=== PATIENT | female | born 1970 | race Caucasian/White ===

== ENCOUNTER 2020-01-22 16:20 | Inpatient (IN) | payer OTHER, SELFPAY ==
[~2020-01-22] VITALS: Ht 152.4 cm; Wt 101.6 kg
[2020-01-22 18:00] VITALS: BP 157/86
[2020-01-22] MEDS ORDERED: CITA20TA7 PO (18:08)
[2020-01-22] MEDS ORDERED: ROPI1TAB3 PO (18:08)
[2020-01-22] MEDS ORDERED: SM E1DRO2 OU (18:08)
[2020-01-22] MEDS ORDERED: XALA0.007 OU (18:08)
[2020-01-22] MEDS ORDERED: ONDA-83 PO (18:08)
[2020-01-22] MEDS ORDERED: DRIS50003 PO (18:08)
[2020-01-22] MEDS ORDERED: CYAN1000VL IM (18:08)
[2020-01-22] MEDS ORDERED: AMLO2.5T3 PO (18:08)
[2020-01-22] MEDS ORDERED: LISI40TA PO (18:08)
[2020-01-22] MEDS ORDERED: TOPI25CA3 PO (18:08)
[2020-01-22] MEDS ORDERED: QVAR80AE8 PO (18:08)
--- NOTE | 2020-01-22 18:23 | HPEPDOC ---
[facility] Medical History & Physical Date of Admission Jan 22, 2020 Date of Service: Jan 22, 2020 Attending Physician: EDY KRAMER MD History and Physical TIME OF SERVICE: 7:35 PM CHIEF COMPLAINT: "I hurt all over" HISTORY OF PRESENT ILLNESS: This is a 49-year-old female who presented with the chief complaint of "I hurt all over" when asked to be more specific, she admitted to having 10 out of 10 at its worse in severity, abdominal pain that was worse when she moves around for several weeks. She cannot identify any specific alleviating factors. She is also complaining of multiple episodes of nausea and nonbloody emesis that occur when she smells food,, and multiple episodes of nonbloody diarrhea. She last ate a bagel last night. Today she presented to [facility] because her symptoms were worse. The initial blood work was remarkable for a d-dimer 7.1, hemoglobin of 12.9, BUN of 33, creatinine 1.3, glucose 117, and d-dimer 7.1. CTA of the chest was negative. CT of the abdomen identified a mass / possible intussusception that was not present on old CT scans, therefore providers to [facility] requested transfer for surgical evaluation. REVIEW OF SYSTEMS: 12 point review of systems negative except as listed in HPI PAST MEDICAL/ SURGICAL HISTORY: Gastric bypass. Chronic hypertension Anxiety MIGUEL ANGEL Vitamin B deficiency Vitamin D deficiency Cholecystectomy Tubal ligation Hysterectomy Abdominal hernia repair Knee surgery SOCIAL HISTORY: She quit smoking FAMILY HISTORY: COPD ALLERGIES: Please see below. HOME MEDICATIONS: Please see below. PHYSICAL EXAMINATION: Vital Signs Date Time Temp Pulse Resp B/P (MAP) Pulse Ox O2 Delivery O2 Flow Rate FiO2 01/22/20 18:00 98.3 71 20 157/86 (109) 100 Room Air GEN: well-nourished / well developed/ NAD HEENT: NCAT / mucus membranes moist and pink CVS: RRR/NMRG/ no JVP / radial pulses intact LUNGS: able to speak full sentences without stopping to take a breath / lungs are clear to auscultation bilaterally on room air ABDOMEN: Contour ( obese) / soft & tender with palpation MSK/EXTREMITIES: range of motion intact in all 4 extremities NEURO: CN 2-12 are grossly intact / speech is not dysarthric PSYCH: alert and oriented to person place and time/ able to understand and follow all commands LABORATORY DATA: MICROBIOLOGY: Please see below. ASSESSMENT: Ms. Dubose is a 49-year-old with a history of hypertension, anxiety, and multiple abdominal surgeries, who was transferred for surgical evaluation of evaluation of possible mass/ intussusception on CT of the abdomen. PLAN: 1. Abdominal pain, cause to be determined. Blood work and CT scan findings per HPI. Plan: Mid to medical floor/nothing by mouth/IV fluids/follow-up UA/general surgery consult () / morphine PRN for pain 2. NN Anemia , likely due to iron deficiency Repeat hemoglobin has dropped from 12.9 down to 11.6. Plan: Follow up CBC/iron panel and stool occult 3. MIGUEL ANGEL - nocturnal O2/ own BiPAP 4. Chronic HTN - amlodipine, lisinopril and hydrochlorothiazide 5. Anxiety - citalopram DVT PROPHYLAXIS: SCD DISPOSITION: Likely home after more than 2 midnight's stay LATE ENTRY Per discussion with Dr. Salazar we will advance her to mechanical soft diet, stop IVF and follow up CT of the abdomen with contrast tomorrow Home Medications Scheduled Amlodipine Besylate (Amlodipine Besylate) 2.5 Mg Tablet, 2.5 MG PO QPM Beclomethasone Dipropionate (Qvar Redihaler) 80 Mcg/Act Hfa.aeroba, 2 PUFFS PO BID Citalopram Hydrobromide (Citalopram HBr) 20 Mg Tablet, 20 MG PO QPM Cyanocobalamin (Cyanocobalamin Injection) 1,000 Mcg/1 Ml Vial, 1,000 MCG IM DAILY DAILY FOR 7 DAYS STARTING 01/20/2020. THEN ONCE A WEEK, THEN ONCE A MONTH Ergocalciferol (Vitamin D2) (Drisdol) 1,250 Mcg Capsule, 50,000 UNITS PO QWEEK TAKES ON FRIDAYS Ferrous Gluconate (Ferrous Gluconate) 324 Mg Tablet, 324 MG PO BID Folic Acid (Folic Acid) 1 Mg Tablet, 1 MG PO QPM Ketotifen Fumarate (Eye Itch Relief) 5 Ml Drops, 1 DROP OU BID Latanoprost (Xalatan) 0.005% 2.5ML Drops, 1 DROP OU QHS Lisinopril/Hydrochlorothiazide (Lisinopril-Hctz 20-25 mg Tab) 1 Each Tablet, 1 TAB PO QPM Ropinirole HCl (Ropinirole HCl) 1 Mg Tablet, 1 MG PO QPM Topiramate (Topiramate) 100 Mg Tablet, 100 MG PO QPM Scheduled PRN Ondansetron HCl (Ondansetron HCl) 4 Mg Tablet, 4 MG PO QPMP PRN for NAUSEA OR VOMITING Allergies Coded Allergies: Coconut (Unverified Adverse Reaction, Intermediate, BP DROPS, NEEDS IV'S, 01/22/20) Milk Containing Products (Unverified Adverse Reaction, Intermediate, VOMITING, 01/22/20) codeine (Unverified Adverse Reaction, Intermediate, BP DROPS, NEEDS IV'S , 01/22/20) milk (Unverified Adverse Reaction, Intermediate, VOMITING, 01/22/20) peanut (Unverified Adverse Reaction, Mild, VOMITING, 01/22/20) EDY KRAMER MD Jan 22, 2020 18:23
[2020-01-22] MEDS ORDERED: FOLI1TAB11 PO (18:43)
[2020-01-22] MEDS ORDERED: TOPI100T9 PO (18:43)
[2020-01-22] MEDS ORDERED: LISI20TA20 PO (18:43)
[2020-01-22] MEDS ORDERED: FERR32TA PO (18:43)
[2020-01-22] MEDS ORDERED: NS 1,000 ML IV SCH (19:00)
[2020-01-22 19:32] LABS: HEMATOCRIT 35.7 % (36.0-47.0); HEMOGLOBIN 11.6 g/dl (12.0-15.5); MEAN CORPUSCULAR HEMOGLOBIN 29.6 pg (27.0-33.0); MEAN CORPUSCULAR HGB CONC 32.5 g/dl (32.0-36.5); MEAN CORPUSCULAR VOLUME 91.1 fl (80.0-96.0); PLATELET COUNT, AUTOMATED 189 10^3/uL (150-450); RED BLOOD COUNT 3.92 10^6/uL (4.00-5.40)
[2020-01-22 19:44] LABS: INR 1.06; PROTHROMBIN TIME 13.5 SECONDS (11.8-14.0)
[2020-01-22 19:54] LABS: ALBUMIN 3.2 GM/DL (3.2-5.2); BILIRUBIN,TOTAL 0.4 MG/DL (0.2-1.0); CALCIUM LEVEL 8.9 MG/DL (8.5-10.1); CREATININE FOR GFR 1.07 MG/DL (0.55-1.30); GLOMERULAR FILTRATION RATE 57.6 (>51); TOTAL PROTEIN 6.6 GM/DL (6.4-8.2)
[2020-01-22] MEDS ORDERED: MORPHINE 2 MG/ML 1ML VIAL (J2270) IV PRN (20:00)
[2020-01-22] MEDS ORDERED: ONDANSETRON 4 MG TAB PO PRN (20:00)
[2020-01-22] MEDS ORDERED: FERROUS GLUCONATE 324 MG TAB PO SCH (21:00)
[2020-01-22] MEDS: CitaloPRAM (CeleXA) 20 MG TAB PO SCH (21:58)
[2020-01-22] MEDS: hydroCHLOROthiazide 25 MG TAB PO SCH (21:58)
[2020-01-22] MEDS: FOLIC ACID 1 MG TAB PO SCH (21:58)
[2020-01-22] MEDS: lisinopriL 20 MG TAB PO SCH (21:58)
[2020-01-22] MEDS: rOPINIRole 1MG TAB PO SCH (21:58)
[2020-01-22] MEDS: TOPIRAMATE (TopAMAX) 100 MG TAB PO SCH (21:58)
[2020-01-22] MEDS: LATANOPROST 0.005% OPHTH SOLN 2.5 ML OU SCH (21:59)
[2020-01-22] MEDS: CYANOCOBALAMIN 1,000MCG/ML VIAL (J3420) IM SCH (21:59)
[2020-01-22 22:00] VITALS: BP 152/84
[2020-01-22 23:17] LABS: PERCENT SATURATION 24.1 % (13.2-45.0)
[2020-01-23 05:40] LABS: HEMATOCRIT 35.3 % (36.0-47.0); HEMOGLOBIN 11.3 g/dl (12.0-15.5); MEAN CORPUSCULAR HEMOGLOBIN 29.4 pg (27.0-33.0); MEAN CORPUSCULAR VOLUME 91.7 fl (80.0-96.0); PLATELET COUNT, AUTOMATED 199 10^3/uL (150-450); RED BLOOD COUNT 3.85 10^6/uL (4.00-5.40); WHITE BLOOD COUNT 7.8 10^3/uL (4.0-10.0)
[2020-01-23 06:00] VITALS: BP 104/57
[2020-01-23 06:12] LABS: BLOOD UREA NITROGEN 22 MG/DL (7-18); CALCIUM LEVEL 9.1 MG/DL (8.5-10.1); CARBON DIOXIDE LEVEL 26 MEQ/L (21-32); CHLORIDE LEVEL 109 MEQ/L (98-107); CREATININE FOR GFR 0.97 MG/DL (0.55-1.30); GLOMERULAR FILTRATION RATE > 60.0 (>51); GLUCOSE, FASTING 91 MG/DL (70-100); POTASSIUM SERUM 4.1 MEQ/L (3.5-5.1); SODIUM LEVEL 143 MEQ/L (136-145)
[2020-01-23] MEDS ORDERED: ISOVUE-370 76% 100ML VIAL As Ordered ONE (13:14)
--- NOTE | 2020-01-23 13:48 | IPNPDOC ---
Subjective Date Seen The patient was seen on 01/23/20. Subjective Chief Complaint/HPI Patient is still complaining of abdominal pain and she is awaiting surgery repeat CT of the abdomen and pelvis ordered by surgery General: Denies: ROS Unobtainable, Chills, Night Sweats, Fatigue, Malaise, Normal Appetite, Other Symptoms Constitutional: Denies: Chills, Fever, Malaise, Night Sweats, Weakness, Fatigue, Weight Loss, Lethargy, Other Eyes: Denies: Pain, Vision change, Conjunctivae inflammation, Eyelid inflammation, Redness, Other ENT: Denies: Head Aches, Ear Pain, Dysphagia, Sinus Congestion, Post Nasal Drip, Sore Throat, Epistaxis, Other Symptoms Skin: Denies: Rash, Lesions, Jaundice, Bruising, Itching, Dry, Breakdown, Nail Changes, Other Pulmonary: Denies: Dyspnea, Cough, Pleuritic Chest Pain, Other Symptoms Cardiovascular: Denies: Chest Pain, Palpitations, Orthopnea, Paroxysmal Noc. Dyspnea, Edema, Lt Headedness, Other Symptoms Gastrointestinal: Reports: Abdominal Pain Genitourinary: Denies: Dysuria, Frequency, Incontinence, Hematuria, Retention, Other Symptoms Hematologic: Denies: Bruising, Bleeding Excessively, Petecchia, Purpura, Enlarged Lymph Nodes, Other Hematologic Endocrine: Denies: Polydipsia, Polyphagia, Polyuria, Heat Intolerance, Cold Intolerance, Other Endocrine Sx Musculoskeletal: Denies: Neck Pain, Back Pain, Shoulder Pain, Arm Pain, Hand Pain, Leg Pain, Foot Pain, Joint Pain, Muscle Pain, Spasms, Other Symptoms Neurological: Denies: Weakness, Numbness, Incoordination, Change in speech, Confusion, Seizures, Other Symptoms Psych: Denies: Mood Normal, Anxiety, Depression, Memory Issues, Thoughts of Self Harm, Anger, Thoughts of Harming Other, Other Psych Objective Physical Examination General Exam: Positive: Alert, Cooperative Eye Exam: Positive: PERRLA, Conjunctiva & lids normal ENT Exam: Positive: Atraumatic Neck Exam: Positive: Supple Chest Exam: Positive: Clear to auscultation, Normal air movement Heart Exam: Positive: Rate Normal, Normal S1, Normal S2 Abdomen Exam: Positive: Other (, distended with diminished bowel sounds) Extremity Exam: Positive: Normal pulses Skin Exam: Positive: Nl turgor and temperature Neuro Exam: Positive: Normal Speech Psych Exam: Positive: Mood NL, Oriented x 3 Assessment /Plan Problems (1) Abdominal pain Status: Acute Problem Text: 49 years old white female with past medical history of hypertension, anxiety, multiple abdominal surgery, was transferred from [facility] for surgical consult secondary to possible mass/intussusception seen on the CT of the abdomen at [facility] Etiology of the abdominal pain still has to be established Repeat CT of the abdomen and pelvis as ordered by surgery and is in progress Patient is nothing by mouth IV fluids Pain management with morphine Further recommendation as per Dr. Salazar (2) HTN (hypertension) Status: Chronic Problem Text: continue amlodipine, lisinopril and hydrochlorothiazide (3) Anemia Status: Chronic Problem Text: Monitor H&H Plan/VTE VTE Prophylaxis Ordered?: Yes VS, I&O, 24H, Fishbone Vital Signs/I&O Vital Signs Date Time Temp Pulse Resp B/P (MAP) Pulse Ox O2 Delivery O2 Flow Rate FiO2 01/23/20 06:00 97.2 62 17 104/57 (73) 95 Room Air I&O- Last 24 Hours up to 6 AM 01/23/20 06:00 Intake Total 270 ml Output Total 300 ml Balance -30 ml Laboratory Data 24H LABS Laboratory Tests 2 01/22/20 19:10: Nucleated Red Blood Cells % (auto) 0.0, Prothrombin Time 13.5, Prothromb Time International Ratio 1.06, Anion Gap 6L, Glomerular Filtration Rate 57.6, Lactic Acid Level 0.7, Calcium Level 8.9, Iron Level 64, Total Iron Binding Capacity 266, Transferrin % Saturation 24.1, Ferritin 110, Total Bilirubin 0.4, Aspartate Amino Transf (AST/SGOT) 15, Alanine Aminotransferase (ALT/SGPT) 13, Alkaline Phosphatase 88, Total Protein 6.6, Albumin 3.2, Albumin/Globulin Ratio 0.9L 01/23/20 05:28: Nucleated Red Blood Cells % (auto) 0.0, Anion Gap 8, Glomerular Filtration Rate > 60.0, Calcium Level 9.1 CBC/BMP Laboratory Tests 01/22/20 19:10 01/23/20 05:28 AXEL QUINTANILLA MD Jan 23, 2020 13:48
--- NOTE | 2020-01-23 15:15 | REP ---
Clinical: Abdominal pain. Technique: Axial contrast enhanced images from the lung bases to the pubic symphysis using oral (per protocol) and 100 ml Isovue 370 intravenous contrast material with coronal and sagittal re-formations. Comparison: 04/15/2006. Findings: Lung bases are clear. Visualized heart and pericardium normal. Mild fatty infiltration to the liver suggested. Spleen, pancreas, bilateral adrenal glands and kidneys are normal. Evidence for prior gastric bypass surgery and cholecystectomy. The enteric system is without obstruction or acute inflammatory process. Colonic diverticulosis noted without acute diverticulitis. Pelvis demonstrates no collapsed bladder and evidence of prior hysterectomy. No ascites. No free air. No adenopathy. Abdominal aorta and vasculature without aneurysm or dissection. Musculoskeletal structures without acute osseous abnormality. Impression: 1. Hepatic steatosis. 2. Diverticulosis without acute diverticulitis. 3. Evidence of prior gastric bypass surgery, cholecystectomy, and hysterectomy. 4. No acute abdominopelvic pathology appreciated. Specifically, no ascites, focal inflammatory stranding, or adenopathy. Electronically Signed by Arthur Hampton MD 01/23/2020 02:25 P
[2020-01-23] MEDS: lisinopriL 20 MG TAB PO SCH (21:00)
[2020-01-23] MEDS: hydroCHLOROthiazide 25 MG TAB PO SCH (21:00)
[2020-01-23] MEDS: CYANOCOBALAMIN 1,000MCG/ML VIAL (J3420) IM SCH (21:31)
[2020-01-23] MEDS: CitaloPRAM (CeleXA) 20 MG TAB PO SCH (21:31)
[2020-01-23] MEDS: TOPIRAMATE (TopAMAX) 100 MG TAB PO SCH (21:31)
[2020-01-23 21:32] VITALS: BP 100/74
[2020-01-23] MEDS: FOLIC ACID 1 MG TAB PO SCH (21:32)
[2020-01-23] MEDS: LATANOPROST 0.005% OPHTH SOLN 2.5 ML OU SCH (21:32)
[2020-01-23] MEDS: rOPINIRole 1MG TAB PO SCH (21:32)
--- NOTE | 2020-01-23 21:51 | CR ---
DATE OF CONSULTATION: 01/23/2020 REASON FOR CONSULTATION: Abdominal pain. HISTORY OF PRESENT ILLNESS: Patient is a 49-year-old female. She was transferred over from [facility] last evening for complaints of abdominal pain. The labs were normal at [facility]; however, CT there did show a possible mass in her jejunum versus intussusception. She did have a history of gastric bypass, and they had no surgery hone operator there, so she was so transferred over here and admitted to the medicine service. This morning, she claims she has had this pain for the past 3 weeks, she just could not tolerate it anymore and that is why she came into the hospital for evaluation. No changes in bowel movements. No blood in her stool. No nausea, vomiting or fevers. No recent surgeries. She has had previous hernia repair and bypass surgery, but nothing in the past few years. She also denies acid reflux or heartburn and no prior abdominal pains related to this. PAST MEDICAL HISTORY: Gastric bypass, chronic hypertension, anxiety, sleep apnea. PAST SURGICAL HISTORY: Gastric bypass, cholecystectomy, tubal ligation, hysterectomy, ventral hernia repair, knee surgery. ALLERGIES: COCONUT, CODEINE, MILK and PEANUTS. MEDICATIONS: Please see med rec. SOCIAL HISTORY: Denies drug, alcohol, or tobacco abuse. FAMILY HISTORY: Noncontributory. REVIEW OF SYSTEMS: Pertinent positives and negatives as stated in the history of the present illness. PHYSICAL EXAMINATION: General: Patient is an alert and oriented times three, in no acute distress. Vital signs: Temperature 99.5, pulse 73, respirations 17, blood pressure of 152/84, pulse ox 98% on room air. HEENT: Pupils equally round and react to light and accommodation. Heart: S1, S2, regular rate and rhythm. Lungs: Clear to auscultation bilaterally. Abdomen: Soft, tender to palpation mainly in the left lower quadrant into the suprapubic area. No upper abdominal pains. No right-sided pain. Extremities: No clubbing, cyanosis or edema. LABORATORY DATA: White count is 7.8, hemoglobin 11.3, potassium 4.1, creatinine 0.97. Liver function tests (LFTs) from last evening are all within normal range. ASSESSMENT/PLAN: The patient is a 49-year-old female, again transferred from [facility] for abdominal pain, possible mass versus enteritis. Recommendation is to treat her like enteritis for now, IV fluids. Will repeat her imaging here with IV and oral contrast to see if it gives us a better picture as to what exactly is going on inside of her abdomen. There is nothing acute at this point. Her labs are all normal. She is non-peritoneal. This could be secondary to an internal hernia versus intussusception versus enteritis. Will followup the CT results with further recommendations.
[2020-01-23 22:00] VITALS: BP 101/54
[2020-01-24 06:00] VITALS: BP 105/60
[2020-01-24 06:30] LABS: BASO % 0.5 % (0.0-1.0); EOS # 0.2 10^3/uL (0.0-0.5); EOS % 2.7 % (0.0-3.0); HEMATOCRIT 35.9 % (36.0-47.0); HEMOGLOBIN 11.9 g/dl (12.0-15.5); LYMPH # 1.8 10^3/uL (1.5-5.0); LYMPH % 21.7 % (24.0-44.0); MEAN CORPUSCULAR HEMOGLOBIN 29.8 pg (27.0-33.0); MEAN CORPUSCULAR HGB CONC 33.1 g/dl (32.0-36.5); MONO # 0.4 10^3/uL (0.0-0.8); MONO % 5.4 % (0.0-5.0); NEUTROPHILS # 5.7 10^3/uL (1.5-8.5); NEUTROPHILS % 69.2 % (36.0-66.0); PLATELET COUNT, AUTOMATED 204 10^3/uL (150-450); RED BLOOD COUNT 3.99 10^6/uL (4.00-5.40); WHITE BLOOD COUNT 8.2 10^3/uL (4.0-10.0)
[2020-01-24 07:01] LABS: ALBUMIN 3.3 GM/DL (3.2-5.2); ALT/SGPT 14 U/L (12-78); BILIRUBIN,TOTAL 0.6 MG/DL (0.2-1.0); BLOOD UREA NITROGEN 22 MG/DL (7-18); CALCIUM LEVEL 9.5 MG/DL (8.5-10.1); CARBON DIOXIDE LEVEL 28 MEQ/L (21-32); CHLORIDE LEVEL 105 MEQ/L (98-107); CREATININE FOR GFR 0.91 MG/DL (0.55-1.30); GLOMERULAR FILTRATION RATE > 60.0 (>51); GLUCOSE, FASTING 81 MG/DL (70-100); POTASSIUM SERUM 3.9 MEQ/L (3.5-5.1); SODIUM LEVEL 138 MEQ/L (136-145); TOTAL PROTEIN 6.6 GM/DL (6.4-8.2)
[2020-01-24] MEDS ORDERED: ONDANSETRON 4MG/2ML VIAL IV PRN (07:45)
--- NOTE | 2020-01-24 08:15 | IPNPDOC ---
Text Note Date of Service The patient was seen on 01/24/20. NOTE No acute events overnight. Tolerating diet. Her pain is improved, but still p resent in the lower abdomen. VSSAF NAD abd - soft, slight tenderness in the lower abd only labs - below A) 49y/o female with lower abd pains for 3 weeks likely musculoskeletal in nature. P) reg diet d/c home f/u with PCP and consider GI referral. no surgical intervention necessary Luis M Salazar DO VS,[place], I+O VS, [place], I+O Laboratory Tests 01/24/20 06:17 Vital Signs Date Time Temp Pulse Resp B/P (MAP) Pulse Ox O2 Delivery O2 Flow Rate FiO2 01/24/20 06:00 98.6 54 15 105/60 (75) 99 Room Air I&O- Last 24 Hours up to 6 AM 01/24/20 05:59 Intake Total 240 ml Output Total 1000 ml Balance -760 ml AGNES SALAZAR DO Jan 24, 2020 08:15
--- NOTE | 2020-01-24 20:56 | DS.PDOC ---
Discharge Summary General Date of Admission Jan 22, 2020 at 17:24 Date of Discharge 01/24/20 Discharge Summary PROCEDURES PERFORMED DURING STAY: [None]. DISCHARGE DIAGNOSES: Viral enteritis resolved Musculoskeletal abdominal pain Fatty liver Diverticulosis SECONDARY DIAGNOSIS: Gastric bypass. Chronic hypertension Anxiety Morbid obesity MIGUEL ANGEL Vitamin B deficiency Vitamin D deficiency Cholecystectomy Hysterectomy Abdominal Ventral hernia repair Knee surgery COMPLICATIONS/CHIEF COMPLAINT: Abd Pain. HISTORY OF PRESENT ILLNESS: See History and physical HOSPITAL COURSE: This is a 49-year-old female who presented with the chief complaint of "I hurt all over" when asked to be more specific, she admitted to having severe abdominal pain that was worse when she moved around for 2 to 3 weeks. Associated with ongoing nausea when she smelled food and 2 weeks of non bloody diarrhea which hasd resolved just prior to presentation to hospital. She is also complaining of multiple episodes of nausea and nonbloody emesis that occur when she smells food,, and multiple episodes of nonbloody diarrhea. She initially presented to [facility] because her symptoms were worse. CT of the abdomen identified a mass / possible intussusception that was not present on old CT scans, therefore providers to [facility] requested transfer for surgical evaluation. This CT was without contrast. On arrival here Patient was evaluated by Surgeon Dr Martin cooley had CT abd and pelvis with IV and Oral contrast. The CT scan here showed fatty liver, diverticulosis without diverticulitis. No acute pathology was seen. It was felt that her symptoms were due to enteritis which has resolved and the abdominal pain persistent is mostly likely musculoskeletal in nature. DISCHARGE MEDICATIONS: Please see below. ALLERGIES: Please see below. PHYSICAL EXAMINATION ON DISCHARGE: VITAL SIGNS: Please see below. GEN: well-nourished / well developed HEENT: NCAT / mucus membranes moist and pink CVS: RRR/NMRG/ no JVD / radial pulses intact LUNGS: lungs are clear to auscultation bilaterally ABDOMEN: Contour ( obese) / soft , mildly tender in the lower abdomen no guarding or rigidity or rebound. MSK/EXTREMITIES: range of motion intact in all 4 extremities NEURO: No focal neurodeficits. PSYCH: alert and oriented to person place and time LABORATORY DATA: Please see below. ACTIVITY: [As tolerated]. DIET: As tolerated DISPOSITION: 01 Home, Self-Care. DISCHARGE INSTRUCTIONS: PMD in 1 week DISCHARGE CONDITION: [Stable]. TIME SPENT ON DISCHARGE: 35 minutes. Vital Signs/I&Os Vital Signs Date Time Temp Pulse Resp B/P (MAP) Pulse Ox O2 Delivery O2 Flow Rate FiO2 01/24/20 06:00 98.6 54 15 105/60 (75) 99 Room Air I&O- Last 24 Hours up to 6 AM 01/24/20 07:00 Intake Total 840 ml Output Total 1400 ml Balance -560 ml Laboratory Data Labs 24H Laboratory Tests 2 01/24/20 06:17: Immature Granulocyte % (Auto) 0.5, Neutrophils (%) (Auto) 69.2H, Lymphocytes (%) (Auto) 21.7L, Monocytes (%) (Auto) 5.4H, Eosinophils (%) (Auto) 2.7, Basophils (%) (Auto) 0.5, Neutrophils # (Auto) 5.7, Lymphocytes # (Auto) 1.8, Monocytes # (Auto) 0.4, Eosinophils # (Auto) 0.2, Basophils # (Auto) 0.0, Nucleated Red Blood Cells % (auto) 0.0, Anion Gap 5L, Glomerular Filtration Rate > 60.0, Calcium Level 9.5, Total Bilirubin 0.6, Aspartate Amino Transf (AST/SGOT) 16, Alanine Aminotransferase (ALT/SGPT) 14, Alkaline Phosphatase 82, Total Protein 6.6, Albumin 3.3, Albumin/Globulin Ratio 1.0L CBC/BMP Laboratory Tests 01/24/20 06:17 Discharge Medications Scheduled Amlodipine Besylate (Amlodipine Besylate) 2.5 Mg Tablet, 2.5 MG PO QPM, (Reported) Beclomethasone Dipropionate (Qvar Redihaler) 80 Mcg/Act Hfa.aeroba, 2 PUFFS PO BID, (Reported) Citalopram Hydrobromide (Citalopram HBr) 20 Mg Tablet, 20 MG PO QPM, (Reported) Cyanocobalamin (Cyanocobalamin Injection) 1,000 Mcg/1 Ml Vial, 1,000 MCG IM DAILY, (Reported) DAILY FOR 7 DAYS STARTING 01/20/2020. THEN ONCE A WEEK, THEN ONCE A MONTH Ergocalciferol (Vitamin D2) (Drisdol) 1,250 Mcg Capsule, 50,000 UNITS PO QWEEK, (Reported) TAKES ON FRIDAYS Ferrous Gluconate (Ferrous Gluconate) 324 Mg Tablet, 324 MG PO BID, (Reported) Folic Acid (Folic Acid) 1 Mg Tablet, 1 MG PO QPM, (Reported) Ketotifen Fumarate (Eye Itch Relief) 5 Ml Drops, 1 DROP OU BID, (Reported) Latanoprost (Xalatan) 0.005% 2.5ML Drops, 1 DROP OU QHS, (Reported) Lisinopril/Hydrochlorothiazide (Lisinopril-Hctz 20-25 mg Tab) 1 Each Tablet, 1 TAB PO QPM, (Reported) Ropinirole HCl (Ropinirole HCl) 1 Mg Tablet, 1 MG PO QPM, (Reported) Topiramate (Topiramate) 100 Mg Tablet, 100 MG PO QPM, (Reported) Scheduled PRN Ondansetron HCl (Ondansetron HCl) 4 Mg Tablet, 4 MG PO QPMP PRN for NAUSEA OR VOMITING, (Reported) Allergies Coded Allergies: Coconut (Unverified Adverse Reaction, Intermediate, BP DROPS, NEEDS IV'S, 01/22/20) Milk Containing Products (Unverified Adverse Reaction, Intermediate, VOMITING, 01/22/20) codeine (Unverified Adverse Reaction, Intermediate, BP DROPS, NEEDS IV'S , 01/22/20) milk (Unverified Adverse Reaction, Intermediate, VOMITING, 01/22/20) peanut (Unverified Adverse Reaction, Mild, VOMITING, 01/22/20) YANETH FRANCISCO MD Jan 24, 2020 20:56
[2020-01-27] MEDS ORDERED: VITAMIN D 50,000 UNITS CAPSULE (ERGOCALCIFEROL 1.25MG) PO SCH (09:00)
== END 2020-01-24 12:45 | disposition home or self-care (01) | DRG 249 ==
LOC: M MSPAV 17:24
PROVIDERS: ADMIT Internal Medicine; ATTEND Internal Medicine Nephrology
DX: A08.4 Viral intestinal infection, unspecified (principal); E66.01 Morbid (severe) obesity due to excess calories; I10 Essential (primary) hypertension; E55.9 Vitamin D deficiency, unspecified; E53.8 Deficiency of other specified B group vitamins; F41.9 Anxiety disorder, unspecified; Z79.899 Other long term (current) drug therapy; Z88.5 Allergy status to narcotic agent; Z91.018 Allergy to other foods; Z91.010 Allergy to peanuts; Z91.011 Allergy to milk products; Z87.891 Personal history of nicotine dependence; Z98.84 Bariatric surgery status; G47.33 Obstructive sleep apnea (adult) (pediatric); D50.9 Iron deficiency anemia, unspecified